=== PATIENT | male | born 1980 | race African-American/Black ===

== ENCOUNTER 2018-08-27 01:58 | Emergency (ER) | payer OTHER ==
[~2018-08-27] VITALS: Ht 172.7 cm; Wt 77.1 kg
[2018-08-27 02:20] VITALS: BP 132/75
--- NOTE | 2018-08-27 02:20 | NUR ---
ER Nurse Note: Pt came from home with family c/o sore throat for one week. Pt stated 9/10 pain. Pt also complains about dry and blurry eyes. Pt a&ox4, VSS, no signs of distress. Will continue to montior.
--- NOTE | 2018-08-27 02:35 | Emergency Room Report ---
History of Present Illness General Chief Complaint: Sore Throat Source: Patient Present Illness HPI Patient presents with one week of sore throat and yellow crusting from both of his eyes. 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 He's been taking ibuprofen for the throat pain. The pain is on the upper portion of his neck. He denies cough, nausea, vomiting, diarrhea, dysuria, rashes. Allergies: Coded Allergies: No Known Allergies (Unverified , 08/27/18) Patient History Social History: Reports: smoking, alcohol use; Denies: drug use Social History Narrative works on cars Reviewed Nursing Documentation: PMH: Agreed; PSxH: Agreed Nursing Documentation-PMH Past Medical History: No Stated History Physical Exam Vital Signs Date Time Temp Pulse Resp B/P (MAP) Pulse Ox O2 Delivery O2 Flow Rate FiO2 08/27/18 02:06 98.2 76 18 132/75 (94) 98 Room Air Medical Decision Making Diagnostic Impression: Primary Impression: Pharyngitis Additional Impression: Conjunctivitis Status: improved Disposition: HOME, SELF-CARE Condition: Improved Scripts Sulfacetamide Sodium (BLEPH-10) 5 Ml Drops 2 DROP OP Q6HR, #10 ML Prov: Sukhjinder Souza MD 08/27/18 Ibuprofen* (MOTRIN*) 600 Mg Tablet 600 MG ORAL Q6H PRN for For Pain, #20 TAB 0 Refills Prov: Sukhjinder Souza MD 08/27/18 Amoxicillin* (AMOXIL*) 500 Mg Capsule 500 MG ORAL THREE TIMES A DAY, #21 CAP Prov: Sukhjinder Souza MD 08/27/18 Sukhjinder Souza MD August 27, 2018 02:35
[2018-08-27] MEDS ORDERED: IBUPROFEN600 MG ORAL (02:38)
[2018-08-27] MEDS ORDERED: AMOXICILLIN500 MG ORAL (02:38)
[2018-08-27] MEDS ORDERED: BLEPH-105 ML OP (02:39)
[2018-08-27 02:55] VITALS: BP 132/75
--- NOTE | 2018-08-27 02:55 | NUR ---
ER Nurse Note: All orders completed per ERMD orders. Pt seen, treated, medically cleared for discharge by ERMD. Discharge instructions and prescriptions given with repeat verbazliaion by pt. Instructed pt to follow up with primary care provider within one week. Pt a&ox4, VSS, no signs of distress; denies shortness of breath, n/v, pain. ID band removed. Pt left with all belongings with steady gait via own transportation.
== END 2018-08-27 02:55 | disposition home or self-care (01) ==
LOC: EMR 02:40
DX: J02.9 Acute pharyngitis, unspecified (principal); H10.9 Unspecified conjunctivitis
CPT/HCPCS: 99282